=== PATIENT | female | born 1985 | race Caucasian/White ===

== ENCOUNTER → 2021-10-18 | Emergency (ER) | payer BC ==
[~2021-10-18] VITALS: Ht 165 cm; Wt 63.0 kg
[~2021-10-18] MED LIST: ACETAMINOPHEN 500 MG TAB (TYLENOL) PO ONE; BEBTELOVIMAB 175 MG/2 ML VIAL IV ONE; IBUPROFEN 800 MG (MOTRIN) TAB PO ONE; LACTATED RINGERS 1,000 ML IV ONE
[2021-10-19 01:59] LABS: BASOPHILS % (AUTO) 0 % (0-10); EOSINOPHILS % (AUTO) 0 % (0-10); HEMATOCRIT 37 % (35-52); HEMOGLOBIN 12.5 g/dL (11.5-16.0); LYMPHOCYTES # (AUTO) 0.2 10^3/uL (1.0-4.0); LYMPHOCYTES % (AUTO) 2 % (12-44); MEAN CORPUSCULAR HEMOGLOBIN 30 pg (25-34); MEAN CORPUSCULAR HGB CONC 34 g/dL (32-36); MEAN CORPUSCULAR VOLUME 87 fL (80-99); MONOCYTES # (AUTO) 0.5 10^3/uL (0.0-1.0); MONOCYTES % (AUTO) 6 % (0-12); NEUTROPHILS % (AUTO) 91 % (42-75); PLATELET COUNT 301 10^3/uL (130-400); WHITE BLOOD COUNT 8.7 10^3/uL (4.3-11.0)
[2021-10-19 02:02] VITALS: BP 116/78
[2021-10-19 02:06] LABS: ALBUMIN 4.2 GM/DL (3.2-4.5)
[2021-10-19 02:07] LABS: POTASSIUM 3.5 MMOL/L (3.6-5.0)
[2021-10-19 02:08] LABS: CALCIUM 9.4 MG/DL (8.5-10.1); INR 1.1 (0.8-1.4); PROTHROMBIN TIME PATIENT 14.5 SEC (12.2-14.7)
[2021-10-19 02:09] LABS: BILIRUBIN,URINE NEGATIVE (NEGATIVE); CLARITY,URINE CLEAR; COLOR,URINE YELLOW; GLUCOSE, URINE (UA) NEGATIVE (NEGATIVE); KETONES,URINE 3+ (NEGATIVE); LEUKOCYTE ESTERASE ,URINE NEGATIVE (NEGATIVE); NITRITE,URINE NEGATIVE (NEGATIVE); PROTEIN,URINE NEGATIVE (NEGATIVE)
[2021-10-19 02:09] LABS: TOTAL PROTEIN 7.5 GM/DL (6.4-8.2)
[2021-10-19 02:11] LABS: BILIRUBIN,TOTAL 0.3 MG/DL (0.1-1.0)
[2021-10-19 02:13] LABS: CREATININE SERUM 0.76 MG/DL (0.60-1.30)
[2021-10-19 02:19] LABS: BAND NEUTROPHILS 3 %; LYMPHOCYTES % (MANUAL) 3 %; MONOCYTES % (MANUAL) 4 %; NEUTROPHILS % (MANUAL) 90 %; RBC MORPH NORMAL
[2021-10-19 02:28] LABS: BACTERIA,URINE FEW /HPF
[2021-10-19 02:29] LABS: ERYTHROCYTE SEDIMENTATION RATE 8 MM/HR (0-20)
--- NOTE | 2021-10-19 03:17 | ED General ---
General Chief Complaint: Fever-Adult/Adol Stated Complaint: MS,FEVER 103.,SHAKING,HURTS ALLOVER Allergies and Home Medications Allergies Coded Allergies: No Allergy Information Available (Unverified , 10/19/21) Past Slbtdoe-Ogedjg-Aabsgw Hx Patient Social History Tobacco Use?: No Use of E-Cig and/or Vaping dev: No Substance use?: No Alcohol Use?: No Pt feels they are or have been: No Past Medical History Last Menstrual Period: Sep 25, 2021 Physical Exam Vital Signs Vital Signs - First Documented 10/19/21 01:53 Temp 39.0 Pulse 118 Resp 16 B/P (MAP) 116/78 (91) Pulse Ox 97 O2 Delivery Room Air Capillary Refill : Less Than 3 Seconds Height, Weight, BMI Height: '" Weight: lbs. oz. kg; 23.00 BMI Method: Progress/Results/Core Measures Suspected Sepsis Recent Fever Within 48 Hours: Yes Infection Criteria Present: Suspected New Infection New/Unexplained Altered Menta: No SIRS Temperature: Pulse: 118 Respiratory Rate: 16 Laboratory Tests 10/19/21 01:46: White Blood Count 8.7 Blood Pressure 116 /78 Mean: 79 Laboratory Tests 10/19/21 01:46: Creatinine 0.76, INR Comment 1.1, Platelet Count 301, Total Bilirubin 0.3 Results/Orders Lab Results Laboratory Tests Test 10/19/21 01:39 10/19/21 01:46 10/19/21 02:02 Range/Units Influenza Type A (RT-PCR) Not Detected Not Detecte Influenza Type B (RT-PCR) Not Detected Not Detecte SARS-CoV-2 RNA (RT-PCR) Detected H Not Detecte Group A Streptococcus Screen NEGATIVE NEGATIVE White Blood Count 8.7 4.3-11.0 10^3/uL Red Blood Count 4.23 3.80-5.11 10^6/uL Hemoglobin 12.5 11.5-16.0 g/dL Hematocrit 37 35-52 % Mean Corpuscular Volume 87 80-99 fL Mean Corpuscular Hemoglobin 30 25-34 pg Mean Corpuscular Hemoglobin Concent 34 32-36 g/dL Red Cell Distribution Width 13.0 10.0-14.5 % Platelet Count 301 130-400 10^3/uL Mean Platelet Volume 9.0 9.0-12.2 fL Immature Granulocyte % (Auto) 1 % Neutrophils (%) (Auto) 91 H 42-75 % Lymphocytes (%) (Auto) 2 L 12-44 % Monocytes (%) (Auto) 6 0-12 % Eosinophils (%) (Auto) 0 0-10 % Basophils (%) (Auto) 0 0-10 % Neutrophils # (Auto) 8.0 H 1.8-7.8 10^3/uL Lymphocytes # (Auto) 0.2 L 1.0-4.0 10^3/uL Monocytes # (Auto) 0.5 0.0-1.0 10^3/uL Eosinophils # (Auto) 0.0 0.0-0.3 10^3/uL Basophils # (Auto) 0.0 0.0-0.1 10^3/uL Immature Granulocyte # (Auto) 0.0 0.0-0.1 10^3/uL Neutrophils % (Manual) 90 % Lymphocytes % (Manual) 3 % Monocytes % (Manual) 4 % Band Neutrophils 3 % Blood Morphology Comment NORMAL Erythrocyte Sedimentation Rate 8 0-20 MM/HR Prothrombin Time 14.5 12.2-14.7 SEC INR Comment 1.1 0.8-1.4 Activated Partial Thromboplast Time 31 24-35 SEC Sodium Level 135 135-145 MMOL/L Potassium Level 3.5 L 3.6-5.0 MMOL/L Chloride Level 103 98-107 MMOL/L Carbon Dioxide Level 20 L 21-32 MMOL/L Anion Gap 12 5-14 MMOL/L Blood Urea Nitrogen 5 L 7-18 MG/DL Creatinine 0.76 0.60-1.30 MG/DL Estimat Glomerular Filtration Rate 105 BUN/Creatinine Ratio 7 Glucose Level 118 H 70-105 MG/DL Calcium Level 9.4 8.5-10.1 MG/DL Corrected Calcium 9.2 8.5-10.1 MG/DL Total Bilirubin 0.3 0.1-1.0 MG/DL Aspartate Amino Transf (AST/SGOT) 17 5-34 U/L Alanine Aminotransferase (ALT/SGPT) 12 0-55 U/L Alkaline Phosphatase 41 40-136 U/L Lactate Dehydrogenase 126 125-220 U/L C-Reactive Protein High Sensitivity 3.18 H 0.00-0.50 MG/DL Total Protein 7.5 6.4-8.2 GM/DL Albumin 4.2 3.2-4.5 GM/DL Procalcitonin 0.07 <0.10 NG/ML Monoscreen NEGATIVE NEGATIVE Urine Color YELLOW Urine Clarity CLEAR Urine pH 7.0 5-9 Urine Specific [place] 1.015 L 1.016-1.022 Urine Protein NEGATIVE NEGATIVE Urine Glucose (UA) NEGATIVE NEGATIVE Urine Ketones 3+ H NEGATIVE Urine Nitrite NEGATIVE NEGATIVE Urine Bilirubin NEGATIVE NEGATIVE Urine Urobilinogen 0.2 < = 1.0 MG/DL Urine Leukocyte Esterase NEGATIVE NEGATIVE Urine RBC (Auto) 1+ H NEGATIVE Urine RBC 2-5 H /HPF Urine WBC NONE /HPF Urine Squamous Epithelial Cells 2-5 /HPF Urine Crystals NONE /LPF Urine Bacteria FEW H /HPF Urine Casts NONE /LPF Urine Mucus SMALL H /LPF Urine Culture Indicated CULTURE PENDING My Orders Orders - JOHANA OCHOA DO Ed Iv/Invasive Line Start (10/19/21 01:40) O2 (10/19/21 01:40) Monitor-Rhythm Ecg Trace Only (10/19/21:40) Cbc With Automated Diff (10/19/21:40) Comprehensive Metabolic Panel (10/19/21:40) Lactic Acid Analyzer (10/19/21:40) Monotest (10/19/21:40) Protime With Inr (10/19/21:40) Partial Thromboplastin Time (10/19/21:40) Rapid Strep A Screen (10/19/21:40) Ua Culture If Indicated (10/19/21:40) Chest 1 View, Ap/Pa Only (10/19/21:40) Procalcitonin (Pct) (10/19/21:40) Hs C Reactive Protein (10/19/21:40) Erythrocyte Sedimentation Rate (10/19/21:40) LDH (10/19/21:40) Covid 19 Inhouse Test (10/19/21:40) Blood Culture (10/19/21:40) Sputum Culture (10/19/21:40) Urine Culture (10/19/21:40) Ed Iv/Invasive Line Start (10/19/21 01:40) Ed Iv/Invasive Line Start (10/19/21 01:40) Vital Signs Adult Sepsis Patie Q15M (10/19/21 01:40) O2 (10/19/21 01:40) Remove Rings In Anticipation O (10/19/21 01:40) Influenza A And B By Pcr (10/19/21 01:40) Isolation Central Supply Req (10/19/21 01:40) Ed Iv/Invasive Line Start (10/19/21 01:45) Lactated Ringers (Lr 1000 Ml Iv Solution (10/19/21 01:45) Acetaminophen Tablet (Tylenol Tablet) (10/19/21 02:00) Ibuprofen Tablet (Motrin Tablet) (10/19/21 02:00) Manual Differential (10/19/21 01:46) Bebtelovimab (Bebtelovimab) (10/19/21 03:15) Nursing Communication (Order) (10/19/21 03:04) Medications Given in ED Current Medications Medications Dose Ordered Sig/Uriel Route Start Time Stop Time Status Last Admin Dose Admin Acetaminophen 1,000 mg ONCE ONCE PO 10/19/21 02:00 10/19/21 02:01 DC 10/19/21 02:20 1,000 MG Ibuprofen 800 mg ONCE ONCE PO 10/19/21 02:00 10/19/21 02:01 DC 10/19/21 02:19 800 MG Lactated Ringer's 1,000 ml @ 0 mls/hr Q0M ONCE IV 10/19/21 01:45 10/19/21 01:46 DC 10/19/21 02:20 1,000 MLS/HR Vital Signs/I&O 10/19/21 10/19/21 10/19/21 01:53 02:02 02:21 Temp 39.0 39.0 Pulse 118 118 120 Resp 16 16 16 B/P (MAP) 116/78 (91) 116/78 104/67 Pulse Ox 97 97 997 O2 Delivery Room Air Room Air Room Air Capillary Refill : Less Than 3 Seconds Blood Pressure Mean: 79 Progress Note : Progress Note PPE WORN AT ALL TIMES COVID TESTING DONE GIVEN IV FLUIDS, TYLENOL AND MOTRIN FEELING MUCH BETTER AT DISMISSAL NO DETERIORATION IN PT'S CONDITION DURING ER STAY NO COUGH NO DYSPNEA NO HYPOXIA DURING ER STAY DISCUSSED TREATMENT OPTIONS, SHE WOULD MEET CRITERIA DUE TO HER DX OF M.S., AND SHE IS AGREEABLE TO ANY POSSIBLE TREATMENT. DUE TO POTENTIAL DRUG INTERACTION WITH PAXLOVID, AND HER MEDICATION FOR M.S., OPT TO GO MONOCLONAL ANTIBODY INFUSION AT THIS TIME. Diagnostic Imaging Comments CXR--NO ACUTE PROCESS, PENDING RADIOLOGIST REVIEW Reviewed: Reviewed by Me Departure Impression Primary Impression: COVID-19 virus infection Disposition: HOME, SELF-CARE Condition: Stable Departure-Patient Inst. Referrals: DARIAN NORTON APRN (PCP/Family) Primary Care Physician Patient Instructions: Bebtelovimab FDA Fact Sheet, COVID-19 (DC), Preventing the Spread of an Infectious Disease Add. Discharge Instructions: HOME, REST LOTS OF CLEAR LIQUIDS--WATER, BROTH, JELLO, GATORADE TYLENOL 1 GRAM 4 TIMES A DAY, AND MOTRIN 800 MG 4 TIMES A DAY NEEDED FOR PAIN OR FEVER OVER THE COUNTER MEDICATIONS NEEDED FOR COUGH AND CONGESTION FOLLOW UP WITH [facility] NEEDED RETURN TO ER IF WORSE QUARANTINE FOR 10 DAYS All discharge instructions reviewed with patient and/or family. Voiced understanding. JOHANA OCHOA DO Oct 19, 2021 03:17
--- NOTE | 2021-10-19 07:00 | Diagnostic Imaging Report ---
INDICATION: Febrile. COVID positive. FINDINGS: Portable AP chest. The lungs are well aerated and clear. The heart is not enlarged. No hilar adenopathy. No pneumothorax or pleural effusion. IMPRESSION: Normal portable chest. Report was faxed to [facility] Infection Control by madi at 6:59AM. Dictated by: Dictated on workstation # [id number]
== END ==
LOC: ER 23:42
DX: U07.1 COVID-19 (principal)
CPT/HCPCS: 71045